=== PATIENT | male | born 1995 | race Caucasian/White ===

== ENCOUNTER 2023-12-08 20:30 | Emergency (ER) | payer OTHER, SELFPAY ==
[2023-12-08 20:31] VITALS: BP 149/106
[2023-12-08 20:49] LABS: % Basophils 0.7 % (0-2); % Eosinophils 1.4 % (0-6); % Immature Granulocytes 0.2 % (0-0.5); % Lymphocytes 22.7 % (20.5-51.1); % Monocytes 6.4 % (1.7-9.3); % Neutrophils 68.6 % (42.2-75.2); Absolute Basophils 0.1 10^3/uL (0-0.2); Absolute Eosinophils 0.1 10^3/uL (0-0.7); Absolute Monocytes 0.6 10^3/uL (0.1-0.6); Absolute Neutrophils 6.1 10^3/uL (1.4-6.5); Hematocrit 40.9 % (39.0-52.0); Hemoglobin 15.1 g/dL (13.0-18.0); Mean Corp Hgb Conc. 36.9 g/dL (33.0-37.0); Mean Corpuscular Hgb 30.4 pg (27.0-31.0); Mean Corpuscular Volume 82.3 fL (80.0-94.0); Nucleated Red Blood Cells % 0 % (-); Platelet Count 317 10^3/uL (130-400); Red Blood Cell Count 4.97 10^6/uL (4.70-6.10); White Blood Cell Count 8.9 10^3/uL (4.8-10.8)
[2023-12-08 21:07] LABS: ALT (SGPT) 27 U/L (0-50); AST (SGOT) 32 U/L (17-59); Albumin 4.7 g/dl (3.5-5.0); Alkaline Phosphatase 101 U/L (38-126); Blood Urea Nitrogen 9 mg/dl (9-20); Calcium 9.4 mg/dl (8.4-10.2); Carbon Dioxide 26 mmol/L (22-30); Chloride 103 mmol/L (98-107); Glucose 97 mg/dl (70-99); Sodium 136 mmol/L (135-145); Total Bilirubin 0.8 mg/dl (0.2-1.3); Total Protein 7.8 g/dl (6.3-8.2); eGFR > 60.00
[2023-12-08 22:01] VITALS: BP 141/94
--- NOTE | 2023-12-08 22:22 | ED.GENMED ---
History of Present Illness
General
Chief Complaint: Breathing Problem
Source: patient
Exam Limitations: none
Time Seen by Provider: 12/08/23 21:53
Travel History
Have you had any contact with someone who has COVID-19?: No
Do you have any symptoms of coronavirus? Fever > 100 degrees, chills, cough, shortness of breath, sore throat, loss of taste or smell, muscle aches, or headache?: No
History of Present Illness
History of Present Illness:
This is a 28 year old male that comes in with multiple complaints. States that for the past month he has had some lightheadedness/Dizziness. State that he also gets ringing in his ears and that makes him feel like he wants to pass out. States that
today around 5-6 pm he started to feel like he couldn't breath and needed to hold his nostrils open. States that he was feeling lightheaded and slightly dizzy. Denies any fever, chills, chest pain, SOB, abd pain, nausea, vomiting, diarrhea,
headache, urinary burning.
Past History
Past History
ED Past Medical History: Psychiatric (Anxiety/Panic disorder) and Other (Constipation, IBS/Colitis)
ED Past Surgical History: None
Social History
Tobacco: Vaping
Alcohol: None
Drug: None
Personal: Single
Living: with family (Friends)
Employment: Employed
Review of Systems
Review of Systems
All Other Systems: ROS reviewed and negative except as documented in HPI and ROS
Constitutional: Reports no symptoms; Denies fever or chills
EENT: Reports no symptoms
Respiratory: Reports trouble breathing; Denies cough
Cardiac: Reports no symptoms; Denies chest pain
ABD/GI: Reports no symptoms; Denies abdominal pain, nausea, vomiting or diarrhea
: Reports no symptoms; Denies dysuria, frequency or urgency
Musculoskeletal: Reports no symptoms
Skin: Reports no symptoms
Neurological: Reports dizzy and other (Lightheaded); Denies headache
Psychiatric: Reports no symptoms
Phy Exam
General Physical Exam
General Presentation: well appearing and no apparent distress
General age: appears stated age
General Skin: warm and dry
General Habitus: normal
General Mental: alert
General Hydration: appears well hydrated
ENT Exam
ENT Exam: TM's normal, pharynx normal and neck supple
Eye Exam
Eye Exam: EOMI
Cardiovascular Exam
Cardiovascular Exam: regular rate/rhythm, no edema, no murmur and normal peripheral pulses
Pulmonary Exam
Pulmonary Exam: lungs clear (02 saturation 100%), no respiratory distress, no rales, chest non tender, no crackles, no rhonchi, no wheezing and no cough
Gastrointestinal Exam
Gastrointestinal Exam: normal bowel sounds, non tender, soft, no organomegaly, no pulsatile mass and non distended
Musculoskeletal Exam
Musculoskeletal Exam: full ROM and no edema
Skin Exam
Skin Exam: normal color, warm/dry, no rash and no petechia
Psychiatric Exam
Psychiatric Exam: normal mood/affect
Course
Orders/Labs/Results
Orders:
Orders
12/08/23 20:35
Electrocardiogram (*1) Urgent
Reason for Study: Shortness of Breath
EKG- Treatment ONCE
12/08/23 20:44
Complete Blood Count/With Diff Urgent
Comprehensive Metabolic Panel Urgent
12/08/23 22:10
COVID-19 Antigen Urgent
Source: Nasal Swab
Influenza A+B Rapid Molecular Urgent
JOVANY Source: Nasal Swab
Specimen Description:
12/08/23 22:22
CR Chest - 2 Views Urgent
Comment:
Reason For Exam: SOB
Abnormal Lab Results
12/08/23
20:44
Creatinine 0.6 L mg/dL
(0.7-1.3)
12/08/23 20:44
12/08/23 20:44
Labs unremarkable, Negative for COVID and Influenza.
Vital Signs
Initial and Last Documented VS:
Initial Vital Signs
Temp Pulse Resp BP Pulse Ox
98.1 F 95 18 149/106 99
12/08/23 20:31 12/08/23 20:31 12/08/23 20:31 12/08/23 20:31 12/08/23 20:31
Last Documented Vital Signs
Temp Pulse Resp BP Pulse Ox
98.1 F 62 17 141/94 96
12/08/23 20:31 12/08/23 22:45 12/08/23 22:45 12/08/23 22:01 12/08/23 22:45
MDM/Problems Addressed
Differential Diagnosis Includes:
Anxiety
MDM/Problems Addressed:
This is a 28 year old male that comes in with c/o SOB and feeling like he can't get enough air in unless he holds his nostrils open.
Will check labs. X-ray chest and test for COVID and influenza.
Back into see patient. Explained that his blood work is normal along with his chest X-ray. Patient is also negative for COVID and influenza. This may have been an anxiety attack. patient to follow up with the family doctor as needed. Return with any
concerns.
Chronic conditions affecting care: Psychiatric illness
Acute Exacerbation and/or Progression of Chronic Illness: Psychiatric illness
*Radiology
Radiology exam reviewed: radiology read reviewed (Chest- NO radiographic evidence for acute cardiopulmonary disease. )
*Pulse Oximetry
Patient hypoxic: no
*EKG
Interpreted by ED Provider?: Yes
Heart Rate: 67
Rate: normal
Rhythm: sinus
[place]: left axis deviation
Interval: normal interval
QRS Pattern: normal QRS
Ischemia: no ischemia
*Arnp Interpretation
Rate: normal
Heart Rate: 76
Rhythm: sinus
*Critical Care Note
Total Time (30-74mins, 75-104mins- exclusive of procedures): Not Applicable
ED Attending Note
-
Portions of this chart may have been created with voice recognition software.� Occasional wrong word or��sound alike� substitutions may have occurred due to the inherent limitations of voice recognition software.
Discharge Plan
Departure
Patient Disposition: Home (Routine Discharge)
Date of Disposition: 12/08/23
Time of Disposition: 23:25
Patient with high blood pressure during this ER visit?: Yes
Condition: Good
Covid-19: Negative COVID-19
Discharge Problem:
Anxiety
Instructions: Anxiety, Adult (DC), BLOOD PRESSURE
Prescriptions:
No Action
No Current Medications
0
Referrals:
UNKNOWN - PT DOES,NOT KNOW [Family Provider] -
Activity Restrictions/Additional Instructions:
As discussed, your blood work is all normal. You are negative for COVID and Influenza. Your chest x-ray is normal. Please follow up with the family doctor for recheck. Please increase your water intake to 8-8oz glasses daily. IF YOU HAVE ANY OTHER
CONCERNS PLEASE RETURN TO THE EMERGENCY ROOM.
Interventions
Interventions:
*Risk Screen - Suicide Last Done: 12/08/23 20:31
*General Assessment Last Done: 12/08/23 20:31
*Neglect/Abuse Screening Last Done: 12/08/23 20:31
[2023-12-08 22:33] LABS: COVID-19 Antigen Negative (Negative)
== END 2023-12-08 23:30 | disposition home or self-care (01) ==
LOC: EMR 20:30
PROVIDERS: Clinical Nurse Specialist Family Health; Student in an Organized Health Care Education/Training Program; EMERGENCY PHYSICIAN Emergency Medicine
DX: F41.9 Anxiety disorder, unspecified (principal); F41.0 Panic disorder [episodic paroxysmal anxiety]; K58.9 Irritable bowel syndrome, unspecified; F17.290 Nicotine dependence, other tobacco product, uncomplicated
CPT/HCPCS: 99283; 71046; 80053; 85025; 87502; 87811; 93005

== ENCOUNTER 2024-03-03 15:39 | Emergency (ER) | payer SELFPAY ==
[2024-03-03 15:44] VITALS: BP 138/101
[2024-03-03 15:56] LABS: % Basophils 0.7 % (0-2); % Eosinophils 0.4 % (0-6); % Immature Granulocytes 0.4 % (0-0.5); % Lymphocytes 22.9 % (20.5-51.1); % Monocytes 4.7 % (1.7-9.3); % Neutrophils 70.9 % (42.2-75.2); Absolute Basophils 0.1 10^3/uL (0-0.2); Absolute Lymphocytes 1.7 10^3/uL (1.2-3.4); Absolute Monocytes 0.4 10^3/uL (0.1-0.6); Absolute Neutrophils 5.3 10^3/uL (1.4-6.5); Hematocrit 39.2 % (39.0-52.0); Hemoglobin 14.2 g/dL (13.0-18.0); Mean Corp Hgb Conc. 36.2 g/dL (33.0-37.0); Mean Corpuscular Hgb 30.3 pg (27.0-31.0); Mean Corpuscular Volume 83.6 fL (80.0-94.0); Mean Platelet Volume 8.9 fL (7.4-10.4); Nucleated Red Blood Cells % 0 % (-); Platelet Count 237 10^3/uL (130-400); Red Blood Cell Count 4.69 10^6/uL (4.70-6.10); Red Cell Dist. Width 11.6 % (11.5-14.5); White Blood Cell Count 7.4 10^3/uL (4.8-10.8)
[2024-03-03 16:14] LABS: ALT (SGPT) 55 U/L (0-50); AST (SGOT) 31 U/L (17-59); Albumin 4.5 g/dl (3.5-5.0); Alkaline Phosphatase 63 U/L (38-126); Blood Urea Nitrogen 9 mg/dl (9-20); Calcium 9.3 mg/dl (8.4-10.2); Carbon Dioxide 27 mmol/L (22-30); Chloride 97 mmol/L (98-107); Glucose 121 mg/dl (70-99); Potassium 3.9 mmol/L (3.5-5.1); Sodium 135 mmol/L (135-145); Total Bilirubin 1.1 mg/dl (0.2-1.3); Total Protein 7.2 g/dl (6.3-8.2); eGFR > 60.00
--- NOTE | 2024-03-03 17:03 | ED.GENMED ---
History of Present Illness
General
Chief Complaint: Dizziness
Source: patient
Exam Limitations: none
Time Seen by Provider: 03/03/24 16:44
Nursing documentation reviewed up to this point in time: agreed with
Travel History
Have you had any contact with someone who has COVID-19?: No
Do you have any symptoms of coronavirus? Fever > 100 degrees, chills, cough, shortness of breath, sore throat, loss of taste or smell, muscle aches, or headache?: No
History of Present Illness
History of Present Illness:
Patient is a 29-year-old male with history of IBS presenting for evaluation in emergency department for persistent lightheaded sensation. He reports a lightheaded sensation intermittently over the past few months for which he has been seen
previously with a negative workup. Patient states that this is often noticed as he goes from a sitting to standing position. Confirmed with patient that this is a lightheaded sensation and denies any dizziness or spinning sensation. He denies any
fainting episodes. Patient denies any severe headache or neck pain. Patient denies fever or chills. Patient does state that he gets intermittent palpitations but denies any exertional or pleuritic chest pain. Patient denies any significant
shortness of breath. He does have intermittent constipation for which she tries magnesium citrate at home.
Patient does not have a primary care doctor at the moment due to his insurance coverage. He has followed with a GI doctor in the past but it was believed that he had IBS.
Past History
Past History
ED Past Medical History: Psychiatric (Anxiety/Panic disorder) and Other (Constipation, IBS/Colitis)
ED Past Surgical History: None
Social History
Tobacco: Vaping
Alcohol: None
Drug: None
Personal: Single
Living: with family (Friends)
Employment: Employed
Phy Exam
Physical Exam
Physical Exam:
General: Well appearing and non-toxic
Vitals: Hypertensive, otherwise vital signs stable; afebrile
HEENT: Atraumatic, normocephalic; pupils equal round and reactive to light bilaterally, extraocular muscles intact, no vertical nystagmus, protecting airway, uvula midline
Neck: appears supple, trachea midline, no meningeal signs
CV: Regular rate and rhythm, heart sounds normal, no evidence of cyanosis
Resp: No evidence of respiratory distress, lungs clear bilaterally
Abd: Soft, nontender, without any palpable mass, non-distended
Extremities: No deformities, no evidence of cyanosis or edema; strength 5 out of 5 in upper and lower extremities, sensation fully intact, normal finger-nose and [id number], cranial nerves II through XII intact
Neuro: alert and oriented; grossly intact
Psych: Normal affect
Skin: Intact, no rashes
Course
Orders/Labs/Results
Orders:
Orders
03/03/24 15:42
EKG [Electrocardiogram (*1)] Urgent
Reason for Study: Vertigo / Dizzy
EKG- Treatment ONCE
03/03/24 15:49
CBC/With Diff [Complete Blood Count/With Diff] Urgent
CMP [Comprehensive Metabolic Panel] Urgent
03/03/24 17:08
Orthostatic VS- Treatment ONCE
0.9% Sodium Chloride 1000 ml [Nss] 1,000 ml IV BOLUS
03/03/24 18:56
Amoxicillin 875 mg/Clav 125 mg [Augmentin 875 mg/125 mg] 1 tablet PO NOW STA
Abnormal Lab Results
03/03/24
15:49
RBC 4.69 L 10^6/uL
(4.70-6.10)
Chloride 97 L mmol/L
(98-107)
Creatinine 0.6 L mg/dL
(0.7-1.3)
Glucose 121 H mg/dl
(70-99)
ALT 55 H U/L
(0-50)
03/03/24 15:49
03/03/24 15:49
Vital Signs
Initial and Last Documented VS:
Initial Vital Signs
Temp Pulse Resp BP Pulse Ox
98.7 F 102 17 138/101 97
03/03/24 15:44 03/03/24 15:44 03/03/24 15:44 03/03/24 15:44 03/03/24 15:44
Last Documented Vital Signs
Temp Pulse Resp BP Pulse Ox
98.7 F 102 17 138/101 97
03/03/24 15:44 03/03/24 15:44 03/03/24 15:44 03/03/24 15:44 03/03/24 15:44
MDM/Problems Addressed
Differential Diagnosis Includes:
Not limited to: Dehydration, viral illness, arrhythmia,
MDM/Problems Addressed:
Patient is a 29-year-old male with history of IBS presenting for evaluation of chronic lightheadedness over the past few months. Has had negative workup in the past. Also reports chronic constipation. No fever, chills, headache,
numbness/tingling. Vitals are stable, afebrile. Exam as above. Patient is in no apparent distress. Heart is regular, lungs clear bilaterally. He is in no respiratory distress. He is actually no focal neurologic deficits on exam�normal
finger-nose and [id number]. Patient has no evidence of ataxia�do not suspect posterior circulation stroke.
EKG shows normal sinus rhythm without any signs of arrhythmia or ischemia.
Labs obtained in triage are essentially unremarkable,'s some mild dehydration. Will replete with IV fluids. Will check orthostatic. Orthostatics normal, no evidence of orthostatic hypotension.
On reassessment�patient did mention an impacted tooth right upper molar with some pain. On inspection there was a small area of erythema with some mild drainage from a possible small abscess. Will start patient on 10-day course of Augmentin.
First dose given in emergency department today.
Patient remains stable and no emergent findings found on exam or workup here. Feel the patient will benefit most from outpatient primary care follow-up to arrange proper dental care and long-term management of chronic conditions. Discussed at
length with patient importance of following up with providers for further evaluation/management. Stable for discharge. Return precautions discussed at length with patient. patient comfortable with plan. All questions answered.
Chronic conditions affecting care:
IBS
Acute Exacerbation and/or Progression of Chronic Illness:
N/A
*Pulse Oximetry
Patient hypoxic: no
*EKG
Interpreted by ED Provider?: Yes
EKG Intrepretation Date: 03/04/24
Interpretation: normal
Comparison EKG: no changes
Heart Rate: 85
Rate: normal
Rhythm: sinus
Ischemia: no ischemia
*Locks Tender Interpretation
Rate: Locks Tender- N/A
*Critical Care Note
Total Time (30-74mins, 75-104mins- exclusive of procedures): Not Applicable
Data Reviewed
Review of Other/Old Records Reveals: Labs and Records
ED Attending Note
-
Portions of this chart may have been created with voice recognition software.� Occasional wrong word or��sound alike� substitutions may have occurred due to the inherent limitations of voice recognition software.
Discharge Plan
Departure
Patient Disposition: Home (Routine Discharge)
Date of Disposition: 03/03/24
Time of Disposition: 18:49
Patient with high blood pressure during this ER visit?: Yes
Condition: Good
Covid-19: Not Applicable
Discharge Problem:
Lightheadedness, Palpitations
Instructions: Dizziness, Nonvertigo, (DC), Palpitations (DC)
Prescriptions:
New
amoxicillin-pot clavulanate 875-125 mg tablet
1 tab PO BID 10 Days Qty: 20 0RF
Referrals:
[facility] - Next open appointment
UNKNOWN - PT DOES,NOT KNOW [Family Provider] -
Activity Restrictions/Additional Instructions:
-Return to the emergency department with any severe headache, high fevers, worsening dental pain, worsening redness/swelling surrounding dental pain, chest pain, shortness of breath/difficulty breathing, persistent dizziness, severe abdominal pain,
intractable nausea/vomiting, worsening in current symptoms, or any other concerns
-I have sent a prescription in for an antibiotic for your tooth pain. You should take this twice a day for the next 10 days. You can take motrin / tylenol as needed for discomfort. I recommend soft foods.
-It is important stable hydrated.
-As discussed�it is of the utmost importance to establish primary care physician. I provided you information for the free clinic. It is importantly follow-up with a dentist soon as possible to have dental work completed
Interventions
Interventions:
*Risk Screen - Suicide Last Done: 03/03/24 15:44
*General Assessment Last Done: 03/03/24 15:44
*Neglect/Abuse Screening Last Done: 03/03/24 15:44
*Nursing Disposition Last Done: 03/03/24 19:24
ED- Neurological Assessment Last Done: 03/03/24 17:37
Discharge Date and Time
Discharge Date/Time: 03/03/24 19:25
Print Language: ICELANDIC
[2024-03-03 17:26] VITALS: BP 115/82; BP 117/79; BP 119/77; PULSE 63; PULSE 72
[2024-03-03 17:32] VITALS: BMI 22.7
[2024-03-03] MEDS: NSS 1000 IV (17:36)
[2024-03-03] MEDS: AUGMENTIN 875 MG/125 MG 1 TABLET PO (19:18)
== END 2024-03-03 19:25 | disposition home or self-care (01) ==
LOC: EMR 15:39
PROVIDERS: Emergency Medicine; EMERGENCY PHYSICIAN Emergency Medicine
DX: R00.2 Palpitations (principal); R42 Dizziness and giddiness; K58.8 Other irritable bowel syndrome; R03.0 Elevated blood-pressure reading, without diagnosis of hypertension
CPT/HCPCS: 99284; 96360; 80053; 85025; 93005

== ENCOUNTER 2025-02-09 22:51 | Emergency (ER) | payer SELFPAY ==
[2025-02-09 22:54] VITALS: BP 140/95
[2025-02-09 23:42] LABS: % Basophils 0.8 % (0-2); % Immature Granulocytes 0.1 % (0-0.5); % Lymphocytes 31.7 % (20.5-51.1); % Monocytes 7.9 % (1.7-9.3); % Neutrophils 57.5 % (42.2-75.2); Absolute Basophils 0.1 10^3/uL (0-0.2); Absolute Eosinophils 0.2 10^3/uL (0-0.7); Absolute Lymphocytes 2.4 10^3/uL (1.2-3.4); Absolute Monocytes 0.6 10^3/uL (0.1-0.6); Absolute Neutrophils 4.3 10^3/uL (1.4-6.5); Hematocrit 40.8 % (39.0-52.0); Mean Corp Hgb Conc. 36.8 g/dL (33.0-37.0); Mean Corpuscular Hgb 30.2 pg (27.0-31.0); Mean Corpuscular Volume 82.1 fL (80.0-94.0); Mean Platelet Volume 9.1 fL (7.4-10.4); Nucleated Red Blood Cells % 0 % (-); Platelet Count 260 10^3/uL (130-400); Red Blood Cell Count 4.97 10^6/uL (4.70-6.10); Red Cell Dist. Width 11.9 % (11.5-14.5); White Blood Cell Count 7.5 10^3/uL (4.8-10.8)
[2025-02-09 23:45] VITALS: BMI 21.3
[2025-02-09 23:47] LABS: ALT (SGPT) 29 U/L (0-50); AST (SGOT) 23 U/L (17-59); Albumin 4.6 g/dl (3.5-5.0); Alkaline Phosphatase 76 U/L (38-126); Blood Urea Nitrogen 4 mg/dl (9-20); Calcium 9.7 mg/dl (8.4-10.2); Carbon Dioxide 24 mmol/L (22-30); Chloride 106 mmol/L (98-107); Estimated Creatinine Clearance > 125 ml/min; Glucose 101 mg/dl (70-99); Potassium 3.7 mmol/L (3.5-5.1); Sodium 139 mmol/L (135-145); Total Bilirubin 1.2 mg/dl (0.2-1.3); Total Protein 7.5 g/dl (6.3-8.2); eGFR > 60.00
[2025-02-09 23:59] LABS: Troponin I < 0.012 ng/ml
[2025-02-10] VITALS: BP 133/87
--- NOTE | 2025-02-10 00:47 | ED.GENMED ---
History of Present Illness
General
Chief Complaint: Abdominal Pain
Source: patient
Time Seen by Provider: 02/10/25 00:29
History of Present Illness
History of Present Illness:
30-year-old male presents to the emergency room complaining of abdominal pain. Patient states he was having some crampy abdominal pain that coincided with him having significant flatus. The pain seemed to radiate up to his chest. He then began to
feel anxious and his heart was racing. Patient states he had a bowel movement here in the emergency room and now feels much better. Patient believes he has a history of IBS. He has seen a manager report in the past. No fever, chills, nausea
or vomiting.
Past History
Past History
ED Past Medical History: Psychiatric (Anxiety/Panic disorder) and Other (Constipation, IBS/Colitis)
ED Past Surgical History: None
Social History
Tobacco: Vaping
Alcohol: None
Drug: None
Personal: Single
Living: with family (Friends)
Employment: Employed
Phy Exam
Physical Exam
Physical Exam:
General: Awake, Alert, Oriented X3. No acute distress.
Vitals: unremarkable
Head: Atraumatic
Eyes: Pupils equal, EOMI
Throat: Airway intact, no exudates
Neck: Trachea midline
Lungs: Clear and equal b/l
Heart: Regular rate, no murmurs
Abd: Soft, Nontender, No pulsatile mass
Neuro: Nonfocal
Skin: Warm, dry, no rash
Extremities: pulses equal b/l, no edema
Course
Orders/Labs/Results
Orders:
Orders
02/09/25 23:00
EKG [Electrocardiogram (*1)] Urgent
Reason for Study: Chest Pain
02/09/25 23:01
EKG- Treatment ONCE
02/09/25 23:27
Complete Blood Count/With Diff Urgent
Comprehensive Metabolic Panel Urgent
Troponin I Urgent
Abnormal Lab Results
02/09/25
23:27
BUN 4 L mg/dl
(9-20)
Glucose 101 H mg/dl
(70-99)
02/09/25 23:27
02/09/25 23:27
Vital Signs
Initial and Last Documented VS:
Initial Vital Signs
Temp Pulse Resp BP Pulse Ox
98.5 F 89 18 140/95 100
02/09/25 22:54 02/09/25 22:54 02/09/25 22:54 02/09/25 22:54 02/09/25 22:54
Last Documented Vital Signs
Temp Pulse Resp BP Pulse Ox
98.5 F 92 20 133/87 100
02/09/25 22:54 02/10/25 00:15 02/10/25 00:15 02/10/25 00:00 02/10/25 00:15
MDM/Problems Addressed
Differential Diagnosis Includes:
Intestinal colic, diverticulitis, appendicitis
MDM/Problems Addressed:
Patient's abdominal exam is benign at the time of my evaluation. Labs are unremarkable. He looks quite well. No further workup necessary here in the emergency room. Follow-up with GI as an outpatient. Pain likely related to IBS and intestinal
spasm/colic
*Pulse Oximetry
Patient hypoxic: no
*Critical Care Note
Total Time (30-74mins, 75-104mins- exclusive of procedures): Not Applicable
ED Attending Note
-
Portions of this chart may have been created with voice recognition software.� Occasional wrong word or��sound alike� substitutions may have occurred due to the inherent limitations of voice recognition software.
Discharge Plan
Departure
Patient Disposition: Home (Routine Discharge)
Date of Disposition: 02/10/25
Time of Disposition: 01:22
Patient with high blood pressure during this ER visit?: No
Condition: Good
Discharge Problem:
Abdominal pain
Instructions: Abdominal Pain, BLOOD PRESSURE
Prescriptions:
No Action
amoxicillin-pot clavulanate 875-125 mg tablet
1 tab PO BID 10 Days Qty: 20 0RF
Referrals:
Anibal Abraham MD [Active] -
NONE,* [Family Provider] -
Interventions
Interventions:
*Risk Screen - Suicide Last Done: 02/09/25 22:54
*General Assessment Last Done: 02/09/25 23:44
*Neglect/Abuse Screening Last Done: 02/09/25 23:44
*ED- Fall Risk Assessment Last Done: 02/10/25 01:55
*ED COVID-19 Vaccine History Last Done: 02/09/25 23:44
*Nursing Disposition Last Done: 02/10/25 01:55
VN-Bkjgdi-Fnhslknpgt Assessment Last Done: 02/09/25 23:50
Discharge Date and Time
Print Language: URDU
== END 2025-02-10 02:20 | disposition home or self-care (01) ==
LOC: EMR 22:51
PROVIDERS: Student in an Organized Health Care Education/Training Program; EMERGENCY PHYSICIAN Emergency Medicine
DX: R10.9 Unspecified abdominal pain (principal); F41.9 Anxiety disorder, unspecified; F41.0 Panic disorder [episodic paroxysmal anxiety]; K59.00 Constipation, unspecified; K58.9 Irritable bowel syndrome, unspecified; F17.290 Nicotine dependence, other tobacco product, uncomplicated
CPT/HCPCS: 99283; 80053; 84484; 85025; 93005

== ENCOUNTER 2025-02-17 15:39 | Emergency (ER) | payer SELFPAY ==
[2025-02-17 15:48] VITALS: BP 159/101
[2025-02-17 16:26] LABS: % Basophils 1.2 % (0-2); % Eosinophils 1.8 % (0-6); % Immature Granulocytes 0.2 % (0-0.5); % Lymphocytes 25.5 % (20.5-51.1); % Monocytes 8.8 % (1.7-9.3); % Neutrophils 62.5 % (42.2-75.2); Absolute Basophils 0.1 10^3/uL (0-0.2); Absolute Eosinophils 0.1 10^3/uL (0-0.7); Absolute Lymphocytes 1.3 10^3/uL (1.2-3.4); Absolute Monocytes 0.4 10^3/uL (0.1-0.6); Absolute Neutrophils 3.1 10^3/uL (1.4-6.5); Hematocrit 43.1 % (39.0-52.0); Hemoglobin 15.8 g/dL (13.0-18.0); Mean Corp Hgb Conc. 36.7 g/dL (33.0-37.0); Mean Corpuscular Hgb 30.5 pg (27.0-31.0); Mean Corpuscular Volume 83.2 fL (80.0-94.0); Mean Platelet Volume 9.1 fL (7.4-10.4); Nucleated Red Blood Cells % 0 % (-); Platelet Count 275 10^3/uL (130-400); Red Blood Cell Count 5.18 10^6/uL (4.70-6.10); Red Cell Dist. Width 11.9 % (11.5-14.5)
[2025-02-17 16:40] LABS: ALT (SGPT) 30 U/L (0-50); AST (SGOT) 21 U/L (17-59); Albumin 4.3 g/dl (3.5-5.0); Alkaline Phosphatase 69 U/L (38-126); Blood Urea Nitrogen 12 mg/dl (9-20); Calcium 9.7 mg/dl (8.4-10.2); Carbon Dioxide 29 mmol/L (22-30); Chloride 103 mmol/L (98-107); Glucose 103 mg/dl (70-99); Lipase 88 U/L (23-300); Potassium 4.4 mmol/L (3.5-5.1); Sodium 140 mmol/L (135-145); Total Bilirubin 0.9 mg/dl (0.2-1.3); Total Protein 7.3 g/dl (6.3-8.2); eGFR > 60.00
[2025-02-17 16:52] LABS: Troponin I < 0.012 ng/ml
[2025-02-17 19:53] VITALS: BMI 20.7
[2025-02-17 19:54] VITALS: BP 130/85
--- NOTE | 2025-02-17 20:53 | ED.GENMED ---
History of Present Illness
General
Chief Complaint: Abdominal Symptoms
Source: patient and records
Time Seen by Provider: 02/17/25 19:49
History of Present Illness
History of Present Illness:
30-year-old male with past medical history of IBS presenting to the emergency department for reevaluation after being seen last week for continued abdominal pain, palpitation/chest discomfort and generally feeling unwell. Patient states that
symptoms have not really changed at all and while today symptoms were more minor compared to the other day patient still states because he is not feeling well he wanted to be reevaluated. Patient has no other symptoms including nausea, vomiting,
change in oral intake, bowel changes or urinary symptoms, shortness of breath, cough, hemoptysis, fevers or infectious symptoms or any other concerns. Patient has seen GI before for his IBS/colitis but states the symptoms do feel a little bit
different. Patient offers no other concerns at this time.
Past History
Past History
ED Past Medical History: Psychiatric (Anxiety/Panic disorder) and Other (Constipation, IBS/Colitis)
ED Past Surgical History: None
Social History
Tobacco: Vaping
Alcohol: None
Drug: None
Personal: Single
Living: with family (Friends)
Employment: Employed
Review of Systems
Review of Systems
All Other Systems: ROS reviewed and negative except as documented in HPI and ROS
Phy Exam
Physical Exam
Physical Exam:
GENERAL: Alert , in no apparent distress, smiling and pleasant
EYE: clear conjunctiva b/l
HEAD: NCAT
ENT: mmm.
CARDIAC: Regular rate and rhythm .
LUNGS: Clear breath sounds bilaterally, no acute respiratory distress, no wheezes/rales/rhonchi
ABDOMEN: Soft, without focal tenderness, no r/g, no cvat, negative Herron sign, no tenderness at McBurney's point
NEUROLOGICAL: Alert and oriented
SKIN: Warm and dry, skin intact.
MUSCULOSKELETAL: well perfused.
PSYCH: Normal and appropriate interaction.
Scores
Heart Failure Risk
Heart Failure Risk Score: Not Applicable
Heart Score for Chest Pain Patients
STEMI patient?: No
History: Slightly or Non-Suspicious
ECG: Normal
Age: </= 45 years
Risk Factors: No Risk Factors
Troponin: </= Normal Limit
Heart Score for Chest Pain Patients: 0
Heart Score Risk: 2.5% MACE over next 6 weeks
Withdrawal Assessment of Alcohol
Withdrawal Assessment Completed?: Not applicable
Course
Orders/Labs/Results
Orders:
Orders
02/17/25 15:53
Electrocardiogram (*1) Urgent
Reason for Study: Chest Pain
EKG- Treatment ONCE
02/17/25 16:14
Complete Blood Count/With Diff Urgent
Comprehensive Metabolic Panel Urgent
Lipase Urgent
Troponin I Urgent
02/17/25 20:14
CT Abd/pelvis W Iv Cont Urgent
Comment:
Reason For Exam: generalized abd pain x 1-2 weeks
Abnormal Lab Results
02/17/25
16:14
Glucose 103 H mg/dl
(70-99)
02/17/25 16:14
02/17/25 16:14
Vital Signs
Initial and Last Documented VS:
Initial Vital Signs
Temp Pulse Resp BP Pulse Ox
98.2 F 92 18 159/101 99
02/17/25 15:48 02/17/25 15:48 02/17/25 15:48 02/17/25 15:48 02/17/25 15:48
Last Documented Vital Signs
Temp Pulse Resp BP Pulse Ox
98.2 F 80 18 121/87 99
02/17/25 15:48 02/17/25 21:18 02/17/25 19:54 02/17/25 21:18 02/17/25 21:18
MDM/Problems Addressed
Differential Diagnosis Includes:
IBS/colitis, I overall have minimal concern for any acute surgical pathology given the chronicity of patient's symptoms, given the patient's chest concerns I will consider cardiac arrhythmia/dysrhythmia and PE however again given the chronicity of
the symptoms I am also less suspicious for this as a diagnosis, anxiety
MDM/Problems Addressed:
30-year-old male presenting to the emergency department for evaluation of generalized abdominal discomfort accompanied with some chest/palpitations. On exam patient is very well-appearing, pleasant and in no acute distress. There are no focal
findings on exam. Records reviewed from his visit to the ER the other day and patient had unremarkable workup, no imaging done at that time. Given this is his second visit to the ER in 1 week, will obtain CT of the abdomen however I did discuss
with the patient that I have minimal concern for any acute emergent pathologies. Patient overall very comfortable and in no acute distress. No medications at this time.
*Radiology
Radiology exam reviewed: radiology read reviewed
*Pulse Oximetry
Patient hypoxic: no
*Critical Care Note
Total Time (30-74mins, 75-104mins- exclusive of procedures): Not Applicable
Data Reviewed
Review of Other/Old Records Reveals: Labs and Records
Patient Management
Escalation/DeEscalation of care consider admission/obs:
CT without evidence for acute findings. Patient remains hemodynamically stable and in no acute distress. He is stable for discharge home at this time. Advise close follow-up with GI and primary care provider.
ED Attending Note
-
Portions of this chart may have been created with voice recognition software.� Occasional wrong word or��sound alike� substitutions may have occurred due to the inherent limitations of voice recognition software.
Discharge Plan
Departure
Patient Disposition: Home (Routine Discharge)
Date of Disposition: 02/17/25
Time of Disposition: 21:16
Patient with high blood pressure during this ER visit?: Yes
Discharge Problem:
Abdominal pain
Instructions: Abdominal Pain
Prescriptions:
No Action
amoxicillin-pot clavulanate 875-125 mg tablet
1 tab PO BID 10 Days Qty: 20 0RF
Referrals:
Vero Hernandez, [Active] - (GI - Call for appointment as needed)
Interventions
Interventions:
*Risk Screen - Suicide Last Done: 02/17/25 15:48
*General Assessment Last Done: 02/17/25 15:48
*Neglect/Abuse Screening Last Done: 02/17/25 15:48
*ED- Fall Risk Assessment Last Done: 02/17/25 19:54
*ED COVID-19 Vaccine History Last Done: 02/17/25 19:54
*Nursing Disposition Last Done: 02/17/25 21:34
NP-Dqxyll-Gknnyepvwv Assessment Last Done: 02/17/25 19:58
Discharge Date and Time
Discharge Date/Time: 02/17/25 21:35
Print Language: ANGOLAN
[2025-02-17 21:18] VITALS: BP 121/87
== END 2025-02-17 21:35 | disposition home or self-care (01) ==
LOC: EMR 15:39
PROVIDERS: Emergency Medicine; EMERGENCY PHYSICIAN Emergency Medicine
DX: R10.84 Generalized abdominal pain (principal); R00.2 Palpitations; R07.89 Other chest pain; K58.9 Irritable bowel syndrome, unspecified; F17.290 Nicotine dependence, other tobacco product, uncomplicated
CPT/HCPCS: 99284; 74177; 80053; 83690; 84484; 85025; 93005; Q9967

== ENCOUNTER 2025-02-23 22:09 | Emergency (ER) | payer SELFPAY ==
[2025-02-23 22:16] VITALS: BP 147/105
[2025-02-23 22:31] LABS: % Basophils 0.9 % (0-2); % Eosinophils 1.5 % (0-6); % Immature Granulocytes 0.3 % (0-0.5); % Lymphocytes 26.6 % (20.5-51.1); % Monocytes 7.5 % (1.7-9.3); % Neutrophils 63.2 % (42.2-75.2); Absolute Basophils 0.1 10^3/uL (0-0.2); Absolute Eosinophils 0.1 10^3/uL (0-0.7); Absolute Lymphocytes 1.8 10^3/uL (1.2-3.4); Absolute Monocytes 0.5 10^3/uL (0.1-0.6); Absolute Neutrophils 4.3 10^3/uL (1.4-6.5); Hematocrit 42.5 % (39.0-52.0); Hemoglobin 15.5 g/dL (13.0-18.0); Mean Corp Hgb Conc. 36.5 g/dL (33.0-37.0); Mean Corpuscular Volume 82.4 fL (80.0-94.0); Nucleated Red Blood Cells % 0 % (-); Platelet Count 301 10^3/uL (130-400); Red Blood Cell Count 5.16 10^6/uL (4.70-6.10); Red Cell Dist. Width 11.8 % (11.5-14.5); White Blood Cell Count 6.8 10^3/uL (4.8-10.8)
[2025-02-23 22:53] LABS: Troponin I < 0.012 ng/ml
[2025-02-23 22:55] LABS: ALT (SGPT) 28 U/L (0-50); AST (SGOT) 22 U/L (17-59); Albumin 4.5 g/dl (3.5-5.0); Alkaline Phosphatase 78 U/L (38-126); Blood Urea Nitrogen 10 mg/dl (9-20); Calcium 9.6 mg/dl (8.4-10.2); Carbon Dioxide 26 mmol/L (22-30); Chloride 103 mmol/L (98-107); Glucose 106 mg/dl (70-99); Potassium 3.8 mmol/L (3.5-5.1); Sodium 139 mmol/L (135-145); Total Protein 7.4 g/dl (6.3-8.2); eGFR > 60.00
[2025-02-23 23:42] VITALS: BP 135/98
[2025-02-24] VITALS: BP 132/92
--- NOTE | 2025-02-24 00:02 | ED.GENMED ---
History of Present Illness
General
Chief Complaint: Chest Pain
Source: patient
Exam Limitations: none
Time Seen by Provider: 02/23/25 23:47
History of Present Illness
History of Present Illness:
See MDM
Past History
Past History
ED Past Medical History: Psychiatric (Anxiety/Panic disorder) and Other (Constipation, IBS/Colitis)
ED Past Surgical History: None
Social History
Tobacco: Vaping
Alcohol: None
Drug: None
Personal: Single
Living: with family (Friends)
Employment: Employed
Phy Exam
Physical Exam
Physical Exam:
See MDM
Scores
Heart Score for Chest Pain Patients
STEMI patient?: No
History: Slightly or Non-Suspicious
ECG: Normal
Age: </= 45 years
Risk Factors: No Risk Factors
Troponin: </= Normal Limit
Heart Score for Chest Pain Patients: 0
Heart Score Risk: 2.5% MACE over next 6 weeks
Course
Orders/Labs/Results
Orders:
Orders
02/23/25 22:09
EKG [Electrocardiogram (*1)] Urgent
Reason for Study: Chest Pain
EKG- Treatment ONCE
02/23/25 22:19
CR Chest - 2 Views Urgent
Comment:
Reason For Exam: shortness of breath, chest pain
02/23/25 22:24
Complete Blood Count/With Diff Urgent
Comprehensive Metabolic Panel Urgent
Troponin I Urgent
Abnormal Lab Results
02/23/25
22:24
Glucose 106 H mg/dl
(70-99)
02/23/25 22:24
02/23/25 22:24
Vital Signs
Initial and Last Documented VS:
Initial Vital Signs
Temp Pulse Resp BP Pulse Ox
98 F 99 16 147/105 98
02/23/25 22:16 02/23/25 22:16 02/23/25 22:16 02/23/25 22:16 02/23/25 22:16
Last Documented Vital Signs
Temp Pulse Resp BP Pulse Ox
98 F 99 16 147/105 98
02/23/25 22:16 02/23/25 22:16 02/23/25 22:16 02/23/25 22:16 02/23/25 22:16
MDM/Problems Addressed
Differential Diagnosis Includes:
HPI and MDM Narrative:
30-year-old male presenting to the emergency department with multiple complaints. He complains of abdominal cramping, palpitations, blurry vision, numbness and tingling in his hands among other complaints. This is his third visit recently for
similar complaints. He continues to have a negative workup. He states he does not have insurance and is working on getting a primary care doctor. On my exam, he is well-appearing and nontoxic. Heart regular rate and rhythm. Abdomen soft and
nontender. Lungs are clear. We discussed that the multitude of his complaints needs to be teased out in the outpatient setting. From an emergency standpoint, he is well-appearing and nontoxic. Patient given information for the clinic until he is
able to work on ensuring
Physical exam
General: Well appearing and non-toxic
HEENT: protecting airway. Pupils equal and react
Neck: appears supple
CV: No evidence of cyanosis. Regular rate and rhythm
Resp: No accessory muscle use. Lungs clear
Abd: Non-distended and nontender
Extremities: No deformities
Neuro: alert
Psych: Normal affect
Skin: Intact
Problems Addressed including Acute and Chronic Conditions affecting care:
1. Multiple complaints
Acuity: acute
Prognosis: stable
Details: Patient has a negative workup in regards to blood work and EKG. Discussed having his symptoms reevaluated in the primary care setting. We discussed the possibility of cardiac arrhythmia which would require Holter monitor
Differential Diagnosis (but not limited to): Cardiac arrhythmia, anxiety, depression, GERD, IBS
Testing considered: CT abdomen/pelvis but no tenderness elicited
Drug therapy (if applicable): OTC meds, please see d/c instruction regarding Rx drugs
Amount and/or Complexity of Data Reviewed
Clinical info obtained from: Patient
External data reviewed: N/A
Labs I independently reviewed (but not limited to): Troponin negative
Radiology: N/A
Pulse Ox: not hypoxic
EKG independently reviewed: Sinus rhythm, left axis, no STEMI
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
Critical Care: N/A
Risk of Complication:
Social Determinants of health: Good social support
Discussed with other providers: N/A
Escalation of Care includes Admit/Obs: After being observed in the Emergency Department, pt stable for discharge.
Occasional wrong word or 'sound a like' substitutions may have occurred due to the inherent limitations of voice recognition software. Read the chart carefully and recognize, using context, where substitutions have occurred.
*Critical Care Note
Total Time (30-74mins, 75-104mins- exclusive of procedures): Not Applicable
ED Attending Note
-
Portions of this chart may have been created with voice recognition software.� Occasional wrong word or��sound alike� substitutions may have occurred due to the inherent limitations of voice recognition software.
Discharge Plan
Departure
Patient Disposition: Home (Routine Discharge)
Date of Disposition: 02/24/25
Time of Disposition: 00:07
Patient with high blood pressure during this ER visit?: Yes
Discharge Problem:
Heart palpitations
Instructions: BLOOD PRESSURE
Prescriptions:
No Action
amoxicillin-pot clavulanate 875-125 mg tablet
1 tab PO BID 10 Days Qty: 20 0RF
Referrals:
[facility] [Outside]
NONE,* [Family Provider] -
Activity Restrictions/Additional Instructions:
Please return for any worsening symptoms.
You may return at any time if you have further concerns.
Please follow up with the clinic.
Thank you for choosing [facility].
Discharge Date and Time
Print Language: MALDIVIAN
== END 2025-02-24 00:18 | disposition home or self-care (01) ==
LOC: EMR 22:09
PROVIDERS: EMERGENCY PHYSICIAN Student in an Organized Health Care Education/Training Program
DX: R00.2 Palpitations (principal); F17.290 Nicotine dependence, other tobacco product, uncomplicated; Z59.71 Insufficient health insurance coverage; R03.0 Elevated blood-pressure reading, without diagnosis of hypertension
CPT/HCPCS: 99285; 71046; 80053; 84484; 85025; 93005

== ENCOUNTER → 2025-06-02 13:42 | Outpatient (REF) | payer OTHER, SELFPAY | LOC: HWRCS 13:42 | PROVIDERS: ATTENDING PHYSICIAN Internal Medicine Cardiovascular Disease; FAMILY PHYSICIAN Student in an Organized Health Care Education/Training Program | DX: R06.02 Shortness of breath (principal) | CPT/HCPCS: 93306 ==